=== PATIENT | female | born 1945 | race Caucasian/White ===

== ENCOUNTER 2016-06-30 05:20 | Day surgery (SDC) | payer OTHER ==
[~2016-06-30] VITALS: Ht 157.5 cm; Wt 67.0 kg
[~2016-06-30 05:20] MED LIST: CALCIUM 600+D31 EACH PO; CALCIUM 600-VI1 EAC1 PO; CYANOCOBALAM1000 MCG PO; L-LYSINE1000 M1 PO; LAXATIVE DIETA500 MG PO; LO-DOSE ASPIRIN81 M2 PO; SYNTHROID50 MCG PO; VITAMIN E400 UNIT PO
[2016-06-30 06:31] VITALS: BP 134/70
[2016-06-30] MEDS ORDERED: NORCO 5/3251 TABLET PO (08:45)
[2016-06-30] MEDS ORDERED: COLACE100 MG PO (08:45)
[2016-06-30 09:45] VITALS: BP 135/72
[2016-06-30 10:37] VITALS: BP 128/70
[2016-06-30 11:32] VITALS: BP 124/60
== END 2016-06-30 11:34 | disposition home or self-care (01) ==
LOC: SDC 05:20
DX: K43.9 Ventral hernia without obstruction or gangrene (principal); E03.9 Hypothyroidism, unspecified; Z79.82 Long term (current) use of aspirin
CPT/HCPCS: C1781; J0131; J0690; J1100; J1170; J2405; J2710; J3010